=== PATIENT | male | born 1945 | race Caucasian/White ===

== ENCOUNTER 2020-05-22 19:56 | Emergency (ER) | payer MEDICARE, BC ==
[2020-05-22] MEDS ORDERED: Sodium Chloride 0.9% 1,000 ML IV ONE (20:25)
--- NOTE | 2020-05-22 20:28 | EDM.PDOC ---
ED HPI GENERAL MEDICAL PROBLEM - General Chief Complaint: Chest Pain Stated Complaint: CHEST PAIN Time Seen by Provider: 05/22/20 20:15 Source of Information: Reports: Patient, Family History Limitations: Reports: No Limitations - History of Present Illness INITIAL COMMENTS - FREE TEXT/NARRATIVE: Patient states approximately 1 hour ago he was at home having a bowel movement when he started having midsternal chest pain radiating to the left arm broke out in a sweat rated the pain about a 6 out of 10 with pain going to his left arm as well patient took 1 aspirin and 1 nitro. And it was brought to the ER via family he states pain is now about a 3 out of 10 it is no longer radiating. Patient has no other complaints at this time he does have a history of coronary artery disease with a stent placed about 3 years ago Onset: Today, Sudden Duration: Hour(s): Location: Reports: Chest Quality: Reports: Pressure, Sharp Improves with: Reports: Medication Associated Symptoms: Reports: Chest Pain, Nausea/Vomiting. Denies: Confusion, Cough, cough w sputum, Diaphoresis, Fever/Chills, Headaches, Loss of Appetite, Malaise, Shortness of Breath, Syncope Left Arm Pain Score (Numeric/FACES): 3 ED ROS GENERAL - Review of Systems Review Of Systems: See Below Constitutional: Reports: Diaphoresis. Denies: No Symptoms HEENT: Reports: No Symptoms Respiratory: Denies: Shortness of Breath, Pleuritic Chest Pain, Cough, Sputum Cardiovascular: Reports: Chest Pain. Denies: Blood Pressure Problem, Dyspnea on Exertion, Lightheadedness, Palpitations, Syncope Endocrine: Reports: No Symptoms GI/Abdominal: Reports: No Symptoms : Reports: No Symptoms Musculoskeletal: Reports: No Symptoms Skin: Reports: No Symptoms Neurological: Reports: No Symptoms Psychiatric: Reports: No Symptoms Hematologic/Lymphatic: Reports: No Symptoms Immunologic: Reports: No Symptoms ED EXAM, GENERAL - Physical Exam Exam: See Below Exam Limited By: No Limitations General Appearance: Alert, WD/WN, No Apparent Distress. No: Anxious, Mild Distress Eye Exam: Bilateral Eye: EOMI, PERRL Nose: Normal Inspection, Normal Mucosa, No Blood Throat/Mouth: Normal Inspection, Normal Lips, Normal Teeth, Normal Gums, Normal Oropharynx, Normal Voice, No Airway Compromise Head: Atraumatic, Normocephalic Neck: Normal Inspection, Supple, Non-Tender, Full Range of Motion Respiratory/Chest: No Respiratory Distress, Lungs Clear, Normal Breath Sounds, No Accessory Muscle Use, Chest Non-Tender Cardiovascular: Normal Peripheral Pulses, Regular Rate, Rhythm, No Edema, No Gallop, No JVD, No Murmur, No Rub GI/Abdominal: Normal Bowel Sounds, Soft, Non-Tender, No Organomegaly, No Distention, No Abnormal Bruit. No: Guarding, Rigid, Rebound, Tender Back Exam: Normal Inspection Extremities: Normal Inspection, Normal Range of Motion, Non-Tender, No Pedal Edema, Normal Capillary Refill Neurological: Alert, Oriented, CN II-XII Intact, Normal Cognition, Normal Gait, No Motor/Sensory Deficits Psychiatric: Normal Affect, Normal Mood Skin Exam: Warm, Dry, Intact, Normal Color, No Rash Course - Vital Signs Text/Narrative:: EKG shows ST elevation in the inferior leads with reciprocal changes EKG was faxed to [facility] was called for cardiology and for transfer CBC BMP troponin coags EKG chest x-ray was ordered along with a heparin bolus heparin drip patient was given 500 mL's of normal saline secondary to inferior wall MA as well as a right-sided EKG was ordered after the first was obtained Spoke with Dr. RODRÍGUEZ cardiology at 2042 he agrees with course of treatment send patient directly to the [facility] Last Recorded V/S: Last Vital Signs Temp 35.9 C L 05/22/20 20:11 Pulse 53 L 05/22/20 20:11 Resp 16 05/22/20 20:11 BP 101/49 L 05/22/20 20:11 Pulse Ox 95 05/22/20 20:11 - Orders/Labs/Meds Orders: Active Orders 24 hr Category Date Time Status EKG 12 Lead [EKG Documentation Completion] [RC] STAT Care 05/22/20 20:20 Active EKG 12 Lead [EKG Documentation Completion] [RC] STAT Care 05/22/20 22:04 Active EKG Documentation Completion [RC] STAT Care 05/22/20 20:20 Active Labs: Laboratory Tests 05/22/20 05/22/20 05/22/20 Range/Units 20:15 20:15 20:15 WBC 8.9 (4.0-10.0) x10^3/uL RBC 4.61 (4.5-6.0) x10^6/uL Hgb 14.6 (14.0-18.0) g/dL Hct 44.4 (40.0-52.0) % MCV 96.3 H (78.0-93.0) fL MCH 31.7 (26.0-32.0) pg MCHC 32.9 (32.0-36.0) g/dL RDW Coeff of Lashawn 11.8 (10.0-15.0) % Plt Count 219 (130-400) x10^3/uL Neut % (Auto) 60.3 (50.0-80.0) % Lymph % (Auto) 25.8 (25.0-50.0) % Terry % (Auto) 10.6 (2.0-11.0) % Eos % (Auto) 3.0 (0.0-4.0) % Baso % (Auto) 0.3 (0.2-1.2) % PT 10.7 (9.5-12.3) SEC INR 1.0 L (2.0-3.5) Sodium 142 (136-145) mmol/L Potassium 3.4 L (3.5-5.1) mmol/L Chloride 104 (98-107) mmol/L Carbon Dioxide 29 (21-32) mmol/L Anion Gap 12.4 (10-20) mmol/L BUN 25 H (7-18) mg/dL Creatinine 1.0 (0.70-1.30) mg/dL Est Cr Clr Drug Dosing TNP Estimated GFR (MDRD) > 60 Glucose 173 H (74-106) mg/dL Calcium 8.4 L (8.5-10.1) mg/dL POC Troponin I (0.00-0.08) ng/mL 05/22/20 Range/Units 20:30 WBC (4.0-10.0) x10^3/uL RBC (4.5-6.0) x10^6/uL Hgb (14.0-18.0) g/dL Hct (40.0-52.0) % MCV (78.0-93.0) fL MCH (26.0-32.0) pg MCHC (32.0-36.0) g/dL RDW Coeff of Lashawn (10.0-15.0) % Plt Count (130-400) x10^3/uL Neut % (Auto) (50.0-80.0) % Lymph % (Auto) (25.0-50.0) % Terry % (Auto) (2.0-11.0) % Eos % (Auto) (0.0-4.0) % Baso % (Auto) (0.2-1.2) % PT (9.5-12.3) SEC INR (2.0-3.5) Sodium (136-145) mmol/L Potassium (3.5-5.1) mmol/L Chloride (98-107) mmol/L Carbon Dioxide (21-32) mmol/L Anion Gap (10-20) mmol/L BUN (7-18) mg/dL Creatinine (0.70-1.30) mg/dL Est Cr Clr Drug Dosing Estimated GFR (MDRD) Glucose (74-106) mg/dL Calcium (8.5-10.1) mg/dL POC Troponin I 0.00 (0.00-0.08) ng/mL Meds: Medications Discontinued Medications Generic Name Dose Route Start Last Admin Trade Name Freq PRN Reason Stop Dose Admin Heparin Sodium (Porcine) Confirm 05/22/20 20:40 Heparin Sodium Administered 05/22/20 20:41 Dose 5,000 units .ROUTE .STK-MED ONE Heparin Sodium/Sodium Chloride Confirm 05/22/20 20:40 Heparin 25,000 Units In 1/2 Ns 500 Ml Administered 05/22/20 20:41 Dose 500 mls @ as directed .ROUTE .STK-MED ONE Departure - Departure Time of Disposition: 20:35 Disposition: DC/Tfer to Acute Hospital 02 Reason for Transfer *Q: Primary PCI Indicated Condition: Good Clinical Impression: Acute inferior myocardial infarction Referrals: PCP,None [Ordering Only Provider] - Forms: ED Department Discharge, Interfacility Transfer EMTALA Sepsis Event Note (ED) - Evaluation Sepsis Screening Result: No Definite Risk - Focused Exam Vital Signs: Vital Signs Temp Pulse Resp BP Pulse Ox 05/22/20 20:11 35.9 C L 53 L 16 101/49 L 95 - Problem List & Annotations (1) Acute inferior myocardial infarction Status: Acute - My Orders Last 24 Hours: My Active Orders 05/22/20 20:20 EKG 12 Lead [EKG Documentation Completion] [RC] STAT EKG Documentation Completion [RC] STAT 05/22/20 22:04 EKG 12 Lead [EKG Documentation Completion] [RC] STAT - Assessment/Plan Last 24 Hours: My Active Orders 05/22/20 20:20 EKG 12 Lead [EKG Documentation Completion] [RC] STAT EKG Documentation Completion [RC] STAT 05/22/20 22:04 EKG 12 Lead [EKG Documentation Completion] [RC] STAT
--- NOTE | 2020-05-22 20:33 | CR ---
[id number] RAD/RAD Chest PA or AP 1V EXAM: FRONTAL CHEST INDICATION: CHEST PAIN COMPARISON: None. DISCUSSION: The lungs are mildly hypoinflated, but clear. The heart is normal in size. Mild tortuosity of the thoracic aorta. IMPRESSION: 1. Negative exam. Diego Carlin MD 05/22/202031 Thank you for allowing us to participate in the care of your patient.
[2020-05-22] MEDS ORDERED: Aspirin 81 MG Tab.Chew ONE (20:34)
[2020-05-22] MEDS ORDERED: Heparin Sodium/0.45% NaCl 500 ML ONE (20:40)
[2020-05-22] MEDS ORDERED: Heparin Sodium 5,000 Units/ML Vial ONE (20:40)
[2020-05-22 20:41] LABS: CHLORIDE,CL 104 mmol/L (98-107); SODIUM,NA 142 mmol/L (136-145)
[2020-05-22 20:46] LABS: ANION GAP 12.4 mmol/L (10-20)
== END 2020-05-22 20:44 | disposition short-term general hospital (02) ==
LOC: VM.ED 19:56
DX: I21.9 Acute myocardial infarction, unspecified (principal)
CPT/HCPCS: 71045; 80048; 84484; 85025; 85610; 93005; 99284; 99285; A9270; J1644; J7030

== ENCOUNTER 2021-02-11 10:27 | Day surgery (SDC) | payer MEDICARE, BC ==
[~2021-02-11 10:27] MED LIST: Lactated Ringers 1,000 ML IV SCH; Sodium Chloride 0.9% 10 ML Syringe FLUSH PRN
[2021-02-11] MEDS ORDERED: Propofol 200 MG/20 ML SDV ONE (11:12)
[2021-02-11] MEDS ORDERED: fentaNYL 100 MCG/2 ML SDV ONE (11:12)
--- NOTE | 2021-02-12 08:46 | OR ---
PREOPERATIVE DIAGNOSIS: History of colon polyps and positive FIT test. POSTOPERATIVE DIAGNOSIS: History of colon polyps and positive FIT test. PROCEDURE PERFORMED: Colonoscopy with polypectomy. PROCEDURE IN DETAIL: This was done in the endoscopy suite. Sedation was given per Anesthesia. First, a rectal exam was done and was normal. Scope was introduced into the rectum and slowly advanced to the rectum, sigmoid, descending, transverse, and ascending colon until the cecum was reached. Upon reaching the cecum, the scope was slowly withdrawn looking at all mucosal surfaces on the way out. No mucosal abnormalities, lesions, or polyps were noted until approximately 20 cm where a small polyp was noted, removed by cold biopsy forceps and sent to Pathology. FINAL DIAGNOSIS: Polyp at 20 cm, otherwise normal colonoscopy. BKD: 02/11/2021 12:07:49 MODL: 02/11/2021 16:16:35 /[id number]
== END 2021-02-11 13:06 | disposition home or self-care (01) ==
LOC: VM.SDS 10:27
PROVIDERS: ATTEND Surgery
DX: K63.5 Polyp of colon (principal); I25.10 Atherosclerotic heart disease of native coronary artery without angina pectoris; E78.2 Mixed hyperlipidemia; M48.061 Spinal stenosis, lumbar region without neurogenic claudication; I25.2 Old myocardial infarction; E66.9 Obesity, unspecified; Z98.890 Other specified postprocedural states; Z79.899 Other long term (current) drug therapy; Z79.82 Long term (current) use of aspirin; Z87.891 Personal history of nicotine dependence; Z68.30 Body mass index [BMI] 30.0-30.9, adult
CPT/HCPCS: 00811; J2704; J3010; J7120